=== PATIENT | female | born 1935 | race Caucasian/White ===

== ENCOUNTER → 2017-07-22 14:59 | Outpatient (CLI) | payer MEDICARE, BC ==
[2014-01-05 14:34] VITALS: BMI 25.7
[~2017-07-22 14:59] MED LIST: ALEVE220 MG PO; BAYER CHEWABLE81 MG PO; NEXIUM40 MG PO; TRICOR48 MG PO; ZOCOR40 MG PO
== END | disposition home or self-care (01) ==
LOC: D.CT 14:00
DX: M54.5 Low back pain (principal)

== ENCOUNTER → 2017-08-31 16:37 | Outpatient (CLI) | payer MEDICARE, OTHER ==
[2014-01-05 14:34] VITALS: BMI 25.7
== END | disposition home or self-care (01) ==
LOC: D.CT 16:37
DX: M25.562 Pain in left knee (principal)